=== PATIENT | male | born 2000 | race Caucasian/White ===

== ENCOUNTER 2023-10-10 22:02 | Emergency (ER) | payer OTHER, SELFPAY ==
--- NOTE | 2023-10-10 | ECG_ITS ---
Test Reason : CP Blood Pressure : / mmHG Vent. Rate : 120 BPM Atrial Rate : 120 BPM P-R Int : 128 ms QRS Dur : 098 ms QT Int : 366 ms P-R-T Axes : 056 081 037 degrees QTc Int : 517 ms Sinus tachycardia RSR' or QR pattern in V1 suggests right ventricular conduction delay Marked ST abnormality, possible inferior subendocardial injury Abnormal ECG No previous ECGs available Referred By: Generic ED Physician Electronically Signed By:JOSE SIMON MD
--- NOTE | ~2023-10-10 | CT_ITS ---
EXAMINATION: CT ANGIOGRAM CHEST CLINICAL INFORMATION: Chest pain. Abnormal EKG. COMPARISON: None available. TECHNIQUE: Multiple axial images were obtained through the chest after the administration of 70 mL of Omnipaque 350 intravenous contrast. Extensive vascular post-processing including two-dimensional and three-dimensional reformatted images were created and reviewed on an independent workstation. This CT examination was performed using dose optimization techniques as appropriate, variously including the following: *Automated exposure control *Adjustment of mA and/or kV according to patient size (this includes techniques or standardized protocols for targeted exams where dose is matched to indication/reason for exam; i.e. extremities or head) *Use of iterative reconstruction technique DLP: 272 mGy-cm FINDINGS: QUALITY OF STUDY/CONTRAST BOLUS: Satisfactory. PULMONARY ARTERIES: No pulmonary emboli. THORACIC AORTA: No aneurysm. LUNG: The lungs are clear. PLEURA: No pleural effusion or pneumothorax. MEDIASTINUM: Normal heart size. No pericardial effusion. No hilar or mediastinal lymphadenopathy. No evidence of septal bowing or right heart strain. CORONARY ARTERY CALCIFICATION: None visualized on this study. CHEST WALL/AXILLA: No axillary or internal mammary lymphadenopathy. OSSEOUS STRUCTURES: No acute or suspicious osseous abnormality. UPPER ABDOMEN: Unremarkable. No reflux of contrast into the hepatic veins to suggest elevated right heart pressures. CT/CT angio chest aorta IMPRESSION: 1. Normal CT of the chest. No evidence of pulmonary embolism. 2. VTE: Negative. Fleischner guidelines were followed.
--- NOTE | ~2023-10-10 | XR_ITS ---
EXAMINATION: XR CHEST CLINICAL INFORMATION: Chest pain. COMPARISON: None available. TECHNIQUE: Frontal view of the chest was obtained. FINDINGS: No significant abnormality is noted involving the heart, lungs, mediastinum, bony thorax or soft tissues. XR/XR chest 1V IMPRESSION: Unremarkable examination.
[2023-10-10 22:11] VITALS: BP 185/83; PULSE 122; RESP 24; TEMP 36.6; O2SAT 100; BMI 22.0
[2023-10-10 22:32] LABS: Basophils Percent Auto 0.2 % (0-2); Eosinophils Percent Auto 0.2 % (0-4); Hematocrit 44.5 % (42.0-52.0); Hemoglobin 16.5 g/dl (14.0-18.0); Imm Gran Abs Auto 0.02 X10*3/uL (0.00-0.03); Imm Gran Pct Auto 0.2 % (0.0-0.4); Lymphocytes Absolute Auto 3.5 X10*3/uL (1.2-4.9); Lymphocytes Percent Auto 29.9 % (20-40); MANUAL DIFF FLAG NO; Mean Corpuscular HGB Conc 37.1 g/dl (31.0-36.0); Mean Corpuscular Hemoglobin 28.8 pg (27.0-33.0); Mean Corpuscular Volume 77.8 fL (80.0-98.0); Mean Platelet Volume 9.3 fL (9.4-12.4); Monocytes Absolute Auto 0.8 X10*3/uL (0.1-1.2); Monocytes Percent Auto 6.9 % (2-11); Neutrophils Absolute Auto 7.3 x10*3/uL (2.0-8.3); Neutrophils Percent Auto 62.6 % (45-73); Platelet Count 348 X10*3/uL (160-400); Red Blood Count 5.72 X10*6/uL (4.60-5.80); Red Cell Distribution Width 11.6 % (11.0-16.0); White Blood Count 11.7 X10*3/uL (4.8-10.8)
[2023-10-10 22:40] LABS: Prothrombin Time 11.6 SEC (11.1-13.3)
[2023-10-10 22:45] VITALS: PULSE 97
[2023-10-10 22:48] LABS: Alanine Aminotransferase 16 U/L (0-40); Albumin Level 5.1 g/dL (3.5-5.0); Alkaline Phosphatase 94 U/L (39-117); Anion Gap 23 (12-20); Aspartate Amino Transferase 21 U/L (5-37); Bilirubin Total 0.8 mg/dL (0.0-1.0); Blood Urea Nitrogen 13 mg/dL (9-16); Calcium 10.9 mg/dL (8.4-10.2); Carbon Dioxide 15 mmol/L (22-29); Chloride 104 mmol/L (96-108); Creatinine Clr Calc Pharmacy 134.2; Estimated Glomerular Filt Rate > 60; Ethanol < 10 mg/dL; Glucose Random 114 mg/dL (60-115); Lipase 16 U/L (8-78); Magnesium 1.6 mg/dL (1.6-2.6); Sodium 139 mmol/L (135-145); Total Protein 8.3 g/dL (6.5-8.0)
[2023-10-10 22:49] VITALS: BP 147/86; PULSE 97; RESP 18; TEMP 36.6; O2SAT 100
[2023-10-10 22:52] VITALS: BP 147/86; PULSE 104; RESP 15; O2SAT 100
[2023-10-10 22:54] LABS: Troponin-I High Sensitivity < 2.7 ng/L (<3.5-35.0)
[2023-10-10] MEDS: LORazepam 2 MG/ML VIAL 1 MG IVPUSH (23:01)
[2023-10-10] MEDS: Magnesium Sulfate/H2O 2 GM/50 ML PIGGYBACK IV (23:01)
[2023-10-10] MEDS: Potassium Chloride Packet 20 MEQ PACKET 40 MEQ PO (23:01)
[2023-10-10] MEDS: 0.9 % Sodium Chloride 1,000 ML 999 ML IV ×2 (23:02)
[2023-10-10 23:05] LABS: Amphetamine Screen Urine Not Detected (Not Detect); Barbiturates, Urine Not Detected (Not Detect); Benzodiazepines Screen Urine Not Detected (Not Detect); Buprenorphine Scr Not Detected (Not Detect); Cannabinoid Screen Urine Not Detected (Not Detect); Cocaine Screen Urine Not Detected (Not Detect); Fentanyl, urine Not Detected (Not Detect); Methadone Screen, Urine Not Detected (Not Detect); Opiate Screen Urine Not Detected (Not Detect); Oxycodone Screen Urine Not Detected (Not Detect); Phencyclidine Screen Urine Not Detected (Not Detect)
--- NOTE | 2023-10-10 23:06 | ED_ITS ---
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 Feels anxiety. No drug use, no pre-workout. No symptoms while training. No sig family history. No recent travel or procedures. MD complaint: chest pain Onset (ago): hour(s) (2pm) Timing of current episode: constant Prior episodes: No Onset: during rest Pain location: epigastric Pain radiation: none Severity: moderate Quality: tightness Relieving factors: nothing Exacerbating factors: stress Associated symptoms: dyspnea and other (anxiety paresthesias in hands and feet) Treatment prior to arrival: none Related Data Allergies Allergy/AdvReac Type Severity Reaction Status Date / Time No Known Allergies Allergy Verified 10/10/23 22:14 Review of Systems 2 Review of Systems: Constitutional : No Weight loss, No Fever, No Chills ENT/Mouth : No sore throat, No Rhinorrhea Eyes: No Eye Pain, No Swelling Cardiovascular : pos Chest Pain, pos SOB, no Dyspnea on Exertion, No Orthopnea, No Edema, No Palpitations Respiratory : No Cough, No Sputum Gastrointestinal : no Nausea, No Vomiting, No Diarrhea, No abdominal Pain, No Hematochezia, No Melena Genitourinary : No Dysuria, No Urinary Frequency Musculoskeletal : No joint pain, No Myalgias, No Joint Swelling Skin : No Skin Lesions, No rash Neuro : No Weakness, pos Numbness, No Dizziness, No Headache Psych : pos Anxiety/Panic, No Depression Heme/Lymph: No Bruising, No Lymphadenopathy Endocrine : No Polyuria, No Polydipsia All other systems reviewed and are negative PMFSH Past Medical History Attestation statement: The following information was validated with the patient. Medical History Anxiety Social History Social History (Updated 10/10/23 @ 23:07 by Lesley Osman DO) Patient Tobacco Use Status: Never used Tobacco Smoked in Last 30 Days: No Use of substances other than those prescribed or required for medical reasons: No Advance Directives: No Advance Directives Information Provided: Yes Do you have a plan to hurt others: No Plan Physical Exam 2 Vital Signs: Vital Signs: Last Vital Signs Temp 98.3 F 10/11/23 02:52 Pulse 86 10/11/23 02:52 Resp 18 10/11/23 02:52 BP 142/73 H 10/11/23 02:52 Pulse Ox 99 10/11/23 02:52 O2 Del Method Room Air 10/11/23 02:52 BMI result Body Mass Index 22.0 Appearance: Alert. Oriented X3. No acute distress. anxious Eyes: Pupils equal, round and reactive to light. ENT: Pharynx normal. Neck: Normal inspection. Neck supple. CVS: Normal heart rate and rhythm. Pulses normal. distal pulses symmetric and bounding Respiratory: No respiratory distress. Breath sounds normal. Abdomen: Soft and nontender. Skin: Skin warm and dry. Normal skin color. Normal skin turgor. Extremities: No lower extremity edema. No calf ttp Neuro: Oriented X 3. No motor deficit. No sensory deficit. Medications Administered Discontinued Medications Generic Name Dose Route Start Last Admin Trade Name Freq PRN Reason Stop Dose Admin Sodium Chloride 1,000 mls @ 999 mls/hr 10/10/23 22:26 10/11/23 01:19 Ns IV 10/10/23 23:26 Infused .Q1H1M ONE Infusion Magnesium Sulfate 2 gm in 50 mls @ 25 mls/hr 10/10/23 22:52 10/11/23 01:20 Magnesium Sulfate/H2o IV 10/11/23 00:51 Infused ONCE ONE Infusion Potassium Chloride 10 meq in 100 mls @ 100 mls/hr 10/10/23 22:52 10/11/23 02:27 Potassium Chloride/H20 IV 10/10/23 23:51 Infused ONCE ONE Infusion Sodium Chloride 1,000 mls @ 999 mls/hr 10/10/23 22:52 10/11/23 01:20 Ns IV 10/10/23 23:52 Infused .Q1H1M ONE Infusion Iohexol 70 ml 10/10/23 23:35 10/10/23 23:35 Iohexol 350 Mg/Ml 100 Ml Infus..Btl IV 10/10/23 23:36 70 ml ONCE ONE Administration Lorazepam 1 mg 10/10/23 22:26 10/10/23 23:01 Lorazepam 2 Mg/Ml Vial IVPUSH 10/10/23 22:27 1 mg STAT STA Administration Potassium Chloride 40 meq 10/10/23 22:52 10/10/23 23:01 Potassium Chloride Packet 20 Meq Packet PO 10/10/23 22:53 40 meq ONCE ONE Administration Medical Decision Making Medical Decision Making [facility] Narrative: 23 yo male with no sig cardiac disease no recent URI or travel, no fam hx of early CAD he is training for triathlon without symptoms at this time comes in with c/o chest pain with bilateral tingling in extremities, anxiety and dyspnea. He is very anxious but has abnormal ekg ? lyte abnormality I have ordered labs, tox screen, IVF, ativan for anxiety, CTA of chest to look at aorta. Differential Diagnosis Differential Diagnoses: The differential diagnosis associated with the presentation includes dissection, lyte abnormality, myocarditis, pericarditis Admission/Observation Consideration of admission/observation: Escalation of care including admission/observation considered trop flat x 2, EKG improved after lyte repletion CTA negative improved stable for DC Lab Data [facility] Lab Attestation statement: I reviewed the patient's lab results. 10/10/23 22:20 10/10/23 22:20 Labs: Lab Results 10/10/23 10/10/23 10/11/23 Range/Units 22:20 22:49 01:10 WBC 11.7 H (4.8-10.8) X10*3/uL RBC 5.72 (4.60-5.80) X10*6/uL Hgb 16.5 (14.0-18.0) g/dl Hct 44.5 (42.0-52.0) % MCV 77.8 L (80.0-98.0) fL MCH 28.8 (27.0-33.0) pg MCHC 37.1 H (31.0-36.0) g/dl RDW 11.6 (11.0-16.0) % Plt Count 348 (160-400) X10*3/uL MPV 9.3 L (9.4-12.4) fL Immature Gran % (Auto) 0.2 (0.0-0.4) % Neut % (Auto) 62.6 (45-73) % Lymph % (Auto) 29.9 (20-40) % [place] % (Auto) 6.9 (2-11) % Eos % (Auto) 0.2 (0-4) % Baso % (Auto) 0.2 (0-2) % Lymph # (Auto) 3.5 (1.2-4.9) X10*3/uL [place] # (Auto) 0.8 (0.1-1.2) X10*3/uL Eos # (Auto) 0.0 (0.0-0.4) X10*3/uL Baso # (Auto) 0.0 (0.0-0.2) X10*3/uL Abs Immat Gran (auto) 0.02 (0.00-0.03) X10*3/uL Absolute Neuts (auto) 7.3 (2.0-8.3) x10*3/uL Absolute Nucleated RBC 0.000 (0.0-0.012) X10*3/uL Nucleated RBC % (auto) 0.0 (0.0-0.2) /100WBC PT 11.6 (11.1-13.3) SEC INR 1.0 (0.9-1.1) Sodium 139 (135-145) mmol/L Potassium 3.0 L (3.3-5.1) mmol/L Chloride 104 (96-108) mmol/L Carbon Dioxide 15 L (22-29) mmol/L Anion Gap 23 H (12-20) BUN 13 (9-16) mg/dL Creatinine 0.81 (0.5-1.4) mg/dL Estim Creat Clear Calc 134.2 Estimated GFR > 60 Random Glucose 114 (60-115) mg/dL Calcium 10.9 H (8.4-10.2) mg/dL Magnesium 1.6 (1.6-2.6) mg/dL Total Bilirubin 0.8 (0.0-1.0) mg/dL AST 21 (5-37) U/L ALT 16 (0-40) U/L Alkaline Phosphatase 94 (39-117) U/L Troponin I High Sens < 2.7 2.7 (<3.5-35.0) ng/L Total Protein 8.3 H (6.5-8.0) g/dL Albumin 5.1 H (3.5-5.0) g/dL Lipase 16 (8-78) U/L Urine Opiates Screen Not Detected (Not Detect) Ur Buprenorphine Scrn Not Detected (Not Detect) ng/mL Ur Oxycodone Screen Not Detected (Not Detect) ng/mL Urine Methadone Screen Not Detected (Not Detect) ng/mL Urine Fentanyl Screen Not Detected (Not Detect) Ur Barbiturates Screen Not Detected (Not Detect) Ur Phencyclidine Scrn Not Detected (Not Detect) Ur Amphetamines Screen Not Detected (Not Detect) U Benzodiazepines Scrn Not Detected (Not Detect) Urine Cocaine Screen Not Detected (Not Detect) U Marijuana (THC) Screen Not Detected (Not Detect) Ethyl Alcohol < 10 mg/dL Independent Interpretation I performed an independent interpretation of an: EKG, Plain X-Ray and CT Scan Interpretation: Rate: 120 Rhythm: sinus tach [place]: normal Normal P waves. Normal AMANDEEP. Normal QRS complex. ST T wave : inf and lateral ST depressions no RENÉE qTC: 517 prior studies: ? lyte abnormality no priors The study has been interpreted contemporaneously by me. EKG #2 Rate: 79 Rhythm: NSR [place]: normal Normal P waves. Normal AMANDEEP. Normal QRS complex. ST T wave : normal no RENÉE qTC: 426 prior studies: improved The study has been interpreted contemporaneously by me. . Radiology Impression Discussion of test interpretation with radiology: I have reviewed the radiologist's reading. Independent Historian Clinical information obtained from an independent historian. History obtained from or confirmed by: Parent Critical Care Time Critical Care Time Critical Care Time: Yes Total Critical Care Time: 45 Attestation: repletion of K and magnesium with IV lyte repletion, repeat labs, repeat EKG I attest to this time spent taking care of the patient Discharge Plan Discharge Clinical Impression: Atypical chest pain, Acute hypokalemia, Hypomagnesemia Patient Disposition: Home, Self-Care Instructions: Chest Pain (ED), Hypokalemia (ED), Hypomagnesemia (ED) Additional Instructions: repeat tests for the heart were normal had to replete your potassium, magnesium and hydrate you. follow up with your doctor and repeat electrolytes in 48 hours return for any worsening symptoms or concerns stay hydrated. PULMONARY ARTERIES: No pulmonary emboli. THORACIC AORTA: No aneurysm. Stand Alone Forms: Work/School Release Print Language: Micronesian
[2023-10-10] MEDS: iohexoL 350 MG/ML 100 ML INFUS..BTL 70 ML IV (23:35)
[2023-10-11 01:07] VITALS: BP 135/85; PULSE 95; RESP 16; TEMP 36.9; O2SAT 99
--- NOTE | 2023-10-11 01:13 | MHC.EDTECH ---
Hourly rounds and vitals completed,repeat Trop. obtained and sent to lab.
[2023-10-11] MEDS: Potassium Chloride/H20 10 MEQ/100 ML PIGGYBACK 100 MEQ IV (01:19)
[2023-10-11 01:35] LABS: Troponin-I High Sensitivity 2.7 ng/L (<3.5-35.0)
--- NOTE | 2023-10-11 01:37 | ECG_ITS ---
Test Reason : REPEAT/TACHY Blood Pressure : / mmHG Vent. Rate : 079 BPM Atrial Rate : 079 BPM P-R Int : 116 ms QRS Dur : 100 ms QT Int : 372 ms P-R-T Axes : 039 068 032 degrees QTc Int : 426 ms Normal sinus rhythm with sinus arrhythmia RSR' or QR pattern in V1 suggests right ventricular conduction delay Borderline ECG When compared with ECG of 10-OCT-2023 22:12, Vent. rate has decreased BY [address] no longer depressed in Inferior leads ST no longer depressed in Anterolateral leads Referred By: Lesley Osman Electronically Signed By:JOSE SIMON MD
[2023-10-11 02:52] VITALS: BP 142/73; PULSE 86; RESP 18; TEMP 36.8; O2SAT 99
--- NOTE | 2023-10-11 02:52 | MHC.EDTECH ---
EKG taken per order and signed by provider,hourly rounds and vitals completed
[2023-10-11 03:57] VITALS: BP 142/73; PULSE 86; RESP 18; TEMP 36.8; O2SAT 99
== END 2023-10-11 03:59 | disposition home or self-care (01) ==
PROVIDERS: Emergency Provider Emergency Medicine; PCP Internal Medicine
DX: R07.89 Other chest pain (principal); R06.02 Shortness of breath; R10.13 Epigastric pain; E87.6 Hypokalemia; E83.42 Hypomagnesemia; F41.9 Anxiety disorder, unspecified; R20.2 Paresthesia of skin; Z79.899 Other long term (current) drug therapy
CPT/HCPCS: 36415; 71045; 71275; 80053; 80307; 83690; 83735; 84484; 85025; 85610; 93005; 96365; 96366; 96367; 96375; 99285; J2060; J3475; J3480; Q9967

== ENCOUNTER → 2023-10-10 22:12 | Outpatient (BNV) | payer OTHER, SELFPAY | PROVIDERS: Emergency Provider Emergency Medicine; PCP Internal Medicine; Visit Provider Internal Medicine Cardiovascular Disease | DX: R00.0 Tachycardia, unspecified (principal); R94.31 Abnormal electrocardiogram [ECG] [EKG] | CPT/HCPCS: 93010 ==

== ENCOUNTER → 2023-10-11 01:37 | Outpatient (BNV) | payer OTHER, SELFPAY | PROVIDERS: Emergency Provider Emergency Medicine; PCP Internal Medicine; Visit Provider Internal Medicine Cardiovascular Disease | DX: I49.9 Cardiac arrhythmia, unspecified (principal); I45.89 Other specified conduction disorders | CPT/HCPCS: 93010 ==